=== PATIENT | female | born 1975 | race Caucasian/White ===

== ENCOUNTER 2020-11-30 18:47 | Emergency (ER) | payer OTHER ==
[~2020-11-30] VITALS: Ht 172.7 cm; Wt 121.6 kg
== END 2020-11-30 21:00 | disposition home or self-care (01) ==
LOC: FSED 19:05
DX: S00.83XA Contusion of other part of head, initial encounter (principal); V49.3XXA Car occupant (driver) (passenger) injured in unspecified nontraffic accident, initial encounter; Y92.414 Local residential or business street as the place of occurrence of the external cause
CPT/HCPCS: 70450; 70486; 72125; 99282